=== PATIENT | female | born 1965 | race Caucasian/White ===

== ENCOUNTER 2016-11-12 19:28 | Emergency (ER) | payer OTHER, SELFPAY ==
[2016-11-12 20:13] LABS: #Basophils 0.1 thou/uL (0.0-0.2); #Eosinphils 0.1 thou/uL (0.0-0.7); #Lymphocytes 3.9 thou/uL (1.20-3.40); #Monocytes 0.5 thou/uL (0.11-0.59); #Neutrophils 4.2 thou/uL (1.40-6.50); %Basophils 1.3 % (0.0-1.0); %Eosinophils 1.1 % (0.0-10.0); %Lymphocytes 44.3 % (21.0-51.0); %Monocytes 5.3 % (0.0-10.0); Hematocrit 47.3 % (36.0-47.0); Mean Platelet Volume 6.5 fL (7.4-10.4); White Blood Cell (WBC) Count 8.8 thou/uL (4.8-10.8)
[2016-11-12 20:36] LABS: ALT (SGPT) 24 U/L (8-55); AST (SGOT) 21 U/L (5-34); Alkaline Phosphatase 117 U/L (40-150); Anion Gap 13 mmol/L (10-20); BUN (Urea Nitrogen) 10 mg/dL (9.8-20.1); Bilirubin, Total 0.2 mg/dL (0.2-1.2); Calc. Creatinine Clearance 0 mL/min (70-130); Calcium 9.4 mg/dL (7.8-10.44); Carbon Dioxide 27 mmol/L (22-29); Chloride 102 mmol/L (98-107); Estimated GFR-MDRD 60; Globulin 3.1 g/dL (2.4-3.5); Protein, Total 7.3 g/dL (6.0-8.3)
[2016-11-12] MEDS ORDERED: Ondansetron HCl/PF 4 MG/2 ML Vial ONE (20:42)
[2016-11-12 20:45] LABS: Lipase 36 U/L (8-78)
[2016-11-12 20:46] LABS: CK (CPK) 202 U/L (29-168)
[2016-11-12 21:34] LABS: Bilirubin Negative (Negative); Blood, Urine Negative (Negative); Glucose, Urine (Dipstick) Negative (Negative); Ketone, Urine Negative (Negative); Nitrite Negative (Negative); Protein, Urine (Dipstick) Negative (Neg-Trace); Urobilinogen 0.2 mg/dL (0.2-1.0)
--- NOTE | 2016-11-13 00:12 | CT ---
CT ABDOMEN AND PELVIS WITHOUT IV CONTRAST 11/12/2016 HISTORY: Pelvic pain with onset of symptoms today at work. The patient states suprapubic pain with radiation of the pain to groin. The patient has right lower as well as left lower quadrant pain. COMPARISON: 01/13/2016 FINDINGS: A calcified granuloma is seen in the liver. The liver otherwise has a grossly normal non-enhanced C T appearance. The lung bases, liver, spleen, pancreas, bilateral adrenal glands, kidneys, and incompletely distend ed urinary bladder demonstrate a grossly normal non-enhanced CT appearance. No renal or ureteral calculi are seen bilaterally, and there is no evidence of hydronephrosis. The appendix is visualized and normal in caliber. A few colonic diverticula are seen. There has been no interval change compared to the prior contrasted exam. IMPRESSION: 1. No acute findings are seen on this non-enhanced CT scan of the abdomen or pelvis. 2. No renal or ureteral calculi are seen bilaterally. 3. No CT evidence of appendicitis. POS: CADE
== END 2016-11-12 22:14 | disposition home or self-care (01) ==
LOC: ERS 19:28
DX: R10.2 Pelvic and perineal pain (principal); J44.1 Chronic obstructive pulmonary disease with (acute) exacerbation; F17.210 Nicotine dependence, cigarettes, uncomplicated
CPT/HCPCS: 36415; 74176; 80053; 81003; 82550; 83690; 85025; 94640; 96361; 96374; 96375; J2270; J2405; J7620

== ENCOUNTER 2017-05-17 18:13 | Emergency (ER) | payer OTHER, SELFPAY ==
[2017-05-17] MEDS ORDERED: EPINEPHrine 1 MG/ML AMP ONE (18:17)
[2017-05-17] MEDS ORDERED: Dexamethasone 4 mg/ml Vial ONE (18:28)
[2017-05-17] MEDS ORDERED: diphenhydrAMINE 50 MG/ML VIAL ONE (18:28)
[2017-05-17] MEDS ORDERED: Famotidine/PF 20 mg/2ml Vial ONE (18:33)
[2017-05-17] MEDS ORDERED: predniSONE 20 MG TAB ONE ×2 (19:16→19:25)
== END 2017-05-17 19:40 | disposition home or self-care (01) ==
LOC: ERS 18:13
DX: T63.441A Toxic effect of venom of bees, accidental (unintentional), initial encounter (principal); T78.2XXA Anaphylactic shock, unspecified, initial encounter; J44.9 Chronic obstructive pulmonary disease, unspecified; F17.210 Nicotine dependence, cigarettes, uncomplicated; Z71.6 Tobacco abuse counseling
CPT/HCPCS: 96361; 96372; 96374; 96375; J0171; J1100; J1200; J7506; S0028

== ENCOUNTER 2017-11-16 16:12 | Emergency (ER) | payer BC, OTHER ==
[2017-11-16 16:38] LABS: #Basophils 0.1 thou/uL (0.0-0.2); #Eosinphils 0.1 thou/uL (0.0-0.7); #Lymphocytes 2.7 thou/uL (1.20-3.40); #Monocytes 0.7 thou/uL (0.11-0.59); %Basophils 0.5 % (0.0-1.0); %Eosinophils 0.9 % (0.0-10.0); %Lymphocytes 25.8 % (21.0-51.0); %Monocytes 6.7 % (0.0-10.0); %Neutrophils 66.1 % (42.0-75.0); Hemoglobin 15.9 g/dL (12.0-16.0); Mean Corpuscular HGB CONC 32.9 g/dL (32.0-36.0); Mean Corpuscular Hemoglobin 30.5 pg (27.0-31.0); Mean Corpuscular Volume 92.7 fL (78.0-98.0); Platelet Count 343 thou/uL (130-400); RBC Distribution Width 11.8 % (11.5-14.5); White Blood Cell (WBC) Count 10.6 thou/uL (4.8-10.8)
[2017-11-16] MEDS ORDERED: methylPREDNISolone Sod Succ/PF 125 MG/2 ML VIAL ONE (16:42)
--- NOTE | 2017-11-16 16:57 | RAD ---
CHEST 1 VIEW: Date: 11/16/17 HISTORY: Cough. Congestion. Headache. COMPARISON: 01/13/16. FINDINGS: Normal cardiac silhouette. Pulmonary vessels and hilum are normal. No mass. No consolidation. No pneu mothorax or osseous abnormalities. Chronic changes in the lung parenchyma are noted. IMPRESSION: No acute cardiopulmonary process. POS: H
[2017-11-16 17:03] LABS: ALT (SGPT) 31 U/L (8-55); AST (SGOT) 22 U/L (5-34); Albumin 4.7 g/dL (3.5-5.0); Alkaline Phosphatase 110 U/L (40-150); Anion Gap 13 mmol/L (10-20); BUN (Urea Nitrogen) 9 mg/dL (9.8-20.1); Bilirubin, Total 0.4 mg/dL (0.2-1.2); Calc. Creatinine Clearance 0 mL/min (70-130); Calcium 9.9 mg/dL (7.8-10.44); Carbon Dioxide 24 mmol/L (22-29); Chloride 104 mmol/L (98-107); Estimated GFR-MDRD 67; Globulin 3.1 g/dL (2.4-3.5); Glucose 95 mg/dL (70-105); Potassium 4.2 mmol/L (3.5-5.1); Protein, Total 7.8 g/dL (6.0-8.3); Sodium 137 mmol/L (136-145)
[2017-11-16 17:11] LABS: CKMB 1.2 ng/mL (0-6.6); Troponin I Less than 0.010 ng/mL (< 0.028)
[2017-11-16] MEDS ORDERED: Magnesium Sulfate 2 GM in Sodium Chloride 0.9% 100 ML IVPB SCH (17:45)
[2017-11-16 18:33] LABS: Bilirubin Negative (Negative); Blood, Urine Negative (Negative); Clarity CLEAR (Clear); Glucose, Urine (Dipstick) Negative (Negative); Leukocyte Negative (Negative); Nitrite Negative (Negative); Protein, Urine (Dipstick) Negative (Neg-Trace); Specific Gravity, Urine 1.005 (1.002-1.036); Urobilinogen 0.2 mg/dL (0.2-1.0); pH, Urine 5.5 (5.0-9.0)
== END 2017-11-16 18:45 | disposition home or self-care (01) ==
LOC: ERS 16:12
DX: J44.1 Chronic obstructive pulmonary disease with (acute) exacerbation (principal); J20.9 Acute bronchitis, unspecified; J44.0 Chronic obstructive pulmonary disease with (acute) lower respiratory infection; F17.210 Nicotine dependence, cigarettes, uncomplicated
CPT/HCPCS: 36415; 71045; 80053; 81003; 82553; 83605; 84484; 85025; 85379; 87040; 87804; 93005; 94640; 96361; 96365; 96375; J2930; J3475; J7050; J7620

== ENCOUNTER 2018-06-18 19:30 | Outpatient (CLI) | payer BC | END 2018-06-18 19:31 | disposition home or self-care (01) | LOC: SLEEPLAB 19:30 | PROVIDERS: ATTEND Family Medicine | DX: G47.33 Obstructive sleep apnea (adult) (pediatric) (principal); R53.83 Other fatigue; R06.83 Snoring; G47.00 Insomnia, unspecified; G47.10 Hypersomnia, unspecified; J44.9 Chronic obstructive pulmonary disease, unspecified; R09.02 Hypoxemia | CPT/HCPCS: 95810 ==

== ENCOUNTER 2018-08-13 19:30 | Outpatient (CLI) | payer BC | END 2018-08-13 19:31 | disposition home or self-care (01) | LOC: SLEEPLAB 19:30 | PROVIDERS: ATTEND Family Medicine | DX: G47.33 Obstructive sleep apnea (adult) (pediatric) (principal); R53.83 Other fatigue; R06.83 Snoring; G47.10 Hypersomnia, unspecified; E66.9 Obesity, unspecified; Z68.30 Body mass index [BMI] 30.0-30.9, adult | CPT/HCPCS: 95811 ==

== ENCOUNTER 2019-02-21 11:38 | Emergency (ER) | payer BC ==
[2019-02-21] MEDS ORDERED: methylPREDNISolone Sod Succ/PF 125 MG/2 ML VIAL ONE (13:30)
[2019-02-21] MEDS ORDERED: Albuterol Sulfate 2.5 mg/3 ml Neb ONE (13:34)
--- NOTE | 2019-02-21 13:37 | RAD ---
EXAM: Chest PA and lateral: HISTORY: Cough COMPARISON: 11/16/2017 FINDINGS: Heart: Normal cardiac silhouette Aorta: Unremarkable Pulmonary vessels: Normal Costophrenic angles: Costophrenic angles are clear. Lungs: No consolidation or masses. Hyperinflation with chronic changes. Pneumothorax: No pneumothorax Osseous structures: No osseous abnormalities IMPRESSION: No acute cardiopulmonary process.
== END 2019-02-21 14:51 | disposition home or self-care (01) ==
LOC: ERS 11:38
DX: J20.9 Acute bronchitis, unspecified (principal); J44.0 Chronic obstructive pulmonary disease with (acute) lower respiratory infection; J44.1 Chronic obstructive pulmonary disease with (acute) exacerbation; F17.210 Nicotine dependence, cigarettes, uncomplicated
CPT/HCPCS: 71046; 94640; 94644; 96372; J2930; J7611

== ENCOUNTER 2019-04-08 16:42 | Emergency (ER) | payer BC ==
--- NOTE | 2019-04-08 17:26 | RAD ---
EXAM: Two views chest PROVIDED CLINICAL HISTORY: Flulike symptoms. Cough. COMPARISON: 02/21/2019 FINDINGS: Cardiac silhouette and pulmonary vasculature are within normal limits. Calcified granulomas is again seen in the left midlung zone. The lungs are otherwise clear. The osseous structures have a normal appearance. Chest is stable compared to prior study. IMPRESSION: No acute cardiopulmonary process.
[2019-04-08] MEDS ORDERED: predniSONE 20 MG TAB ONE (17:48)
== END 2019-04-08 17:55 | disposition home or self-care (01) ==
LOC: ERS 16:42
DX: J06.9 Acute upper respiratory infection, unspecified (principal); J44.1 Chronic obstructive pulmonary disease with (acute) exacerbation; J45.909 Unspecified asthma, uncomplicated; F17.210 Nicotine dependence, cigarettes, uncomplicated; Z71.6 Tobacco abuse counseling
CPT/HCPCS: 71046; 87804; 94640; 99406; J7512

== ENCOUNTER 2019-10-12 18:41 | Emergency (ER) | payer BC, OTHER ==
[2019-10-12] MEDS ORDERED: HYDROcodone/Acetaminophen 10/325 mg Tablet ONE (19:17)
[2019-10-12] MEDS ORDERED: Diazepam 5 MG TAB ONE (19:25)
[2019-10-12] MEDS ORDERED: Ondansetron ODT 4 MG TAB ONE (19:26)
--- NOTE | 2019-10-12 19:43 | RAD ---
EXAM: 3 views of the lumbosacral spine HISTORY: Low back pain after trying to keep a large median from falling down COMPARISON: None FINDINGS: 3 views of the lumbosacral spine shows normal alignment of the vertebral bodies and interve rtebral discs. There is sacralization of the L5 vertebral body. There is slight compression of the superior endplate of L2 which is likely chronic. Degenerative changes are seen at the thoracolumbar j unction and at L4/5 and L5/S1. The sacroiliac joints are unremarkable. IMPRESSION: 1. Degenerative changes of the spine, greatest at the lumbosacral junction. 2. Likely chronic compression fracture of the superior endplate of L2
[2019-10-12] MEDS ORDERED: Ketorolac Tromethamine 30 MG/ML VIAL ONE (20:42)
== END 2019-10-12 21:32 | disposition home or self-care (01) ==
LOC: ERS 18:41
DX: M54.5 Low back pain (principal); J44.9 Chronic obstructive pulmonary disease, unspecified; G47.33 Obstructive sleep apnea (adult) (pediatric); F17.210 Nicotine dependence, cigarettes, uncomplicated
CPT/HCPCS: 72100; 96372; J1885; Q0162

== ENCOUNTER 2020-02-26 15:33 | Emergency (ER) | payer BC ==
[2020-02-26 21:28] LABS: SARS-CoV-2 MS2 Positive; SARS-CoV-2 N Gene Negative; SARS-CoV-2 S Gene Negative; SARS-CoV-2 by NAA Not Detected (NotDetected); SARS-CoV-2 orf1ab Negative
== END 2020-02-26 17:33 | disposition home or self-care (01) ==
LOC: ERS 15:33
DX: Z20.822 Contact with and (suspected) exposure to COVID-19 (principal); J45.909 Unspecified asthma, uncomplicated; J44.9 Chronic obstructive pulmonary disease, unspecified; F17.210 Nicotine dependence, cigarettes, uncomplicated
CPT/HCPCS: 87635; 99283; U0003

== ENCOUNTER 2020-10-07 20:41 | Emergency (ER) | payer BC | END 2020-10-07 22:50 | disposition home or self-care (01) | LOC: ERS 20:41 | DX: J06.9 Acute upper respiratory infection, unspecified (principal); J44.9 Chronic obstructive pulmonary disease, unspecified; F17.210 Nicotine dependence, cigarettes, uncomplicated | CPT/HCPCS: 71045; 94640; J7620 ==

== ENCOUNTER 2021-01-22 15:34 | Outpatient (CLI) | payer BC | END 2021-01-22 15:35 | disposition home or self-care (01) | LOC: BICMAMMO 15:34 | PROVIDERS: ATTEND Family Medicine | DX: Z12.31 Encounter for screening mammogram for malignant neoplasm of breast (principal) | CPT/HCPCS: 77063; 77067 ==

== ENCOUNTER 2021-03-18 16:01 | Emergency (ER) | payer BC ==
[2021-03-18 17:15] LABS: #Basophils 0.1 thou/uL (0.0-0.2); #Eosinphils 0.1 thou/uL (0.0-0.7); #Lymphocytes 3.5 thou/uL (1.20-3.40); #Monocytes 0.6 thou/uL (0.11-0.59); #Neutrophils 3.9 thou/uL (1.40-6.50); %Basophils 0.9 % (0.0-1.0); %Eosinophils 1.7 % (0.0-10.0); %Lymphocytes 42.3 % (21.0-51.0); %Monocytes 7.9 % (0.0-10.0); %Neutrophils 47.2 % (42.0-75.0); Hemoglobin 14.3 g/dL (12.0-16.0); Mean Corpuscular HGB CONC 33.3 g/dL (32.0-36.0); Mean Platelet Volume 6.3 fL (7.4-10.4); Platelet Count 436 thou/uL (130-400); RBC Distribution Width 12.2 % (11.5-14.5); Red Blood Cell (RBC) Count 4.61 mill/uL (4.20-5.40); White Blood Cell (WBC) Count 8.2 thou/uL (4.8-10.8)
[2021-03-18] MEDS ORDERED: Acetaminophen 500 MG TAB ONE (17:15)
[2021-03-18 17:36] LABS: ALT (SGPT) 37 U/L (8-55); AST (SGOT) 23 U/L (5-34); Albumin 4.2 g/dL (3.5-5.0); Alkaline Phosphatase 110 U/L (40-110); Anion Gap 12 mmol/L (10-20); BUN (Urea Nitrogen) 9 mg/dL (9.8-20.1); Bilirubin, Total 0.2 mg/dL (0.2-1.2); Calc. Creatinine Clearance 0 mL/min (70-130); Calcium 9.6 mg/dL (7.8-10.44); Carbon Dioxide 25 mmol/L (22-29); Chloride 107 mmol/L (98-107); Globulin 2.7 g/dL (2.4-3.5); Glucose 103 mg/dL (70-105); Potassium 4.4 mmol/L (3.5-5.1); Protein, Total 6.9 g/dL (6.0-8.3); Sodium 140 mmol/L (136-145)
[2021-03-18 17:40] LABS: Troponin I Less than 0.010 ng/mL (< 0.028)
[2021-03-18] MEDS ORDERED: Gabapentin 300 MG CAP PO SCH (17:45)
== END 2021-03-18 18:09 | disposition home or self-care (01) ==
LOC: ERS 16:01
DX: N64.4 Mastodynia (principal); J44.9 Chronic obstructive pulmonary disease, unspecified; F17.210 Nicotine dependence, cigarettes, uncomplicated; Z79.899 Other long term (current) drug therapy
CPT/HCPCS: 36415; 71046; 80053; 84484; 85025; 93005

== ENCOUNTER 2021-06-09 14:14 | Emergency (ER) | payer BC ==
[2021-06-09] MEDS ORDERED: Iopamidol-370 76% 500 ML 1 ML ONE (14:44)
[2021-06-09] MEDS ORDERED: Ondansetron PF 4 MG/2 ML Vial ONE (15:07)
[2021-06-09] MEDS ORDERED: Morphine 4 MG/ML VIAL ONE (15:07)
[2021-06-09 15:30] LABS: #Basophils 0.1 thou/uL (0.0-0.2); #Eosinphils 0.1 thou/uL (0.0-0.7); #Lymphocytes 2.8 thou/uL (1.20-3.40); #Monocytes 0.5 thou/uL (0.11-0.59); #Neutrophils 4.2 thou/uL (1.40-6.50); %Basophils 1.1 % (0.0-1.0); %Eosinophils 0.8 % (0.0-10.0); %Lymphocytes 36.1 % (21.0-51.0); %Monocytes 6.9 % (0.0-10.0); Hemoglobin 15.1 g/dL (12.0-16.0); Mean Corpuscular HGB CONC 34.5 g/dL (32.0-36.0); Mean Corpuscular Hemoglobin 32.4 pg (27.0-31.0); Mean Corpuscular Volume 93.8 fL (78.0-98.0); Mean Platelet Volume 6.5 fL (7.4-10.4); Platelet Count 402 thou/uL (130-400); RBC Distribution Width 11.8 % (11.5-14.5); Red Blood Cell (RBC) Count 4.67 mill/uL (4.20-5.40); White Blood Cell (WBC) Count 7.6 thou/uL (4.8-10.8)
[2021-06-09 15:34] LABS: Bilirubin Negative (Negative); Blood, Urine Negative (Negative); Clarity Clear (Clear); Glucose, Urine (Dipstick) Normal (Negative); Ketone, Urine Negative (Negative); Leukocyte Negative Leu/uL (Negative); Nitrite Negative (Negative); Protein, Urine (Dipstick) Negative (Neg-Trace); Specific Gravity, Urine 1.005 (1.002-1.036); Urobilinogen Normal mg/dL (Less than 2); pH, Urine 6.5 (5.0-9.0)
[2021-06-09 15:51] LABS: ALT (SGPT) 32 U/L (8-55); AST (SGOT) 19 U/L (5-34); Albumin 4.4 g/dL (3.5-5.0); Alkaline Phosphatase 105 U/L (40-110); Anion Gap 14 mmol/L (10-20); BUN (Urea Nitrogen) 9 mg/dL (9.8-20.1); Bilirubin, Total 0.2 mg/dL (0.2-1.2); Calc. Creatinine Clearance 0 mL/min (70-130); Carbon Dioxide 26 mmol/L (22-29); Chloride 103 mmol/L (98-107); Globulin 2.9 g/dL (2.4-3.5); Glucose 88 mg/dL (70-105); Lipase 29 U/L (8-78); Magnesium 2.3 mg/dL (1.6-2.6); Protein, Total 7.3 g/dL (6.0-8.3); Sodium 139 mmol/L (136-145)
== END 2021-06-09 18:05 | disposition home or self-care (01) ==
LOC: ERS 14:14
DX: K59.00 Constipation, unspecified (principal); K52.9 Noninfective gastroenteritis and colitis, unspecified; J44.9 Chronic obstructive pulmonary disease, unspecified; G47.33 Obstructive sleep apnea (adult) (pediatric); F17.210 Nicotine dependence, cigarettes, uncomplicated; Z79.899 Other long term (current) drug therapy; Z79.51 Long term (current) use of inhaled steroids
CPT/HCPCS: 36415; 74177; 80053; 81003; 83605; 83690; 83735; 85025; 87040; 87086; 96374; 96375; J2270; J2405; Q9967

== ENCOUNTER 2022-01-04 18:49 | Emergency (ER) | payer BC ==
[2022-01-04] MEDS ORDERED: Ketorolac Tromethamine 30 MG/ML VIAL ONE (19:29)
[2022-01-04] MEDS ORDERED: Dexamethasone 10 MG/ML VIAL ONE (19:29)
[2022-01-04] MEDS ORDERED: Ondansetron ODT 4 MG TAB ONE (20:09)
[2022-01-04 20:14] LABS: Bacteria/HPF None Seen HPF (None Seen); Bilirubin Negative (Negative); Blood, Urine Negative (Negative); Clarity Clear (Clear); Glucose, Urine (Dipstick) Normal (Negative); Ketone, Urine Trace mg/dL (Negative); Leukocyte Negative Leu/uL (Negative); Nitrite Negative (Negative); Protein, Urine (Dipstick) 30 mg/dL (Neg-Trace); RBC/HPF 0-3 HPF (0-3); Specific Gravity, Urine 1.033 (1.002-1.036); Squamous Epithelial 0-3 HPF (0-3); WBC/HPF 0-3 HPF (0-3)
== END 2022-01-04 20:30 | disposition home or self-care (01) ==
LOC: ERS 18:49
DX: M54.50 Low back pain, unspecified (principal); J44.9 Chronic obstructive pulmonary disease, unspecified; F17.210 Nicotine dependence, cigarettes, uncomplicated
CPT/HCPCS: 81003; 81015; 96372; 99283; J1100; J1885; Q0162

== ENCOUNTER 2022-03-05 08:32 | Outpatient (CLI) | payer BC | END 2022-03-05 08:33 | disposition home or self-care (01) | LOC: BICMAMMO 08:32 | PROVIDERS: ATTEND General Practice | DX: Z13.820 Encounter for screening for osteoporosis (principal); M48.54XA Collapsed vertebra, not elsewhere classified, thoracic region, initial encounter for fracture; M81.0 Age-related osteoporosis without current pathological fracture | CPT/HCPCS: 77080 ==

== ENCOUNTER 2023-07-22 08:24 | Outpatient (CLI) | payer OTHER | END 2023-07-22 08:25 | disposition home or self-care (01) | LOC: BICMAMMO 08:24 | PROVIDERS: ATTEND Internal Medicine Rheumatology | DX: M81.0 Age-related osteoporosis without current pathological fracture (principal); M85.851 Other specified disorders of bone density and structure, right thigh; M85.852 Other specified disorders of bone density and structure, left thigh | CPT/HCPCS: 77080 ==

== ENCOUNTER 2023-08-06 13:25 | Outpatient (CLI) | payer OTHER | END 2023-08-06 13:26 | disposition home or self-care (01) | LOC: BICRAD 13:25 | PROVIDERS: ATTEND Preventive Medicine Occupational Medicine | DX: M81.0 Age-related osteoporosis without current pathological fracture (principal); S32.019D Unspecified fracture of first lumbar vertebra, subsequent encounter for fracture with routine healing; S32.029D Unspecified fracture of second lumbar vertebra, subsequent encounter for fracture with routine healing | CPT/HCPCS: 72100 ==